=== PATIENT | male | born 1975 ===

== ENCOUNTER 2021-05-03 22:27 | Emergency (ER) | payer SELFPAY ==
[2021-05-03 23:48] LABS: CORONAVIRUS COVID-19 NAA NEGATIVE (NEGATIVE)
--- NOTE | 2021-05-04 00:16 | EDM.PDOC ---
ED HPI GENERAL MEDICAL PROBLEM - General Chief Complaint: Respiratory Problem Stated Complaint: can't breathe Time Seen by Provider: 05/03/21 23:55 Source of Information: Reports: Patient History Limitations: Reports: No Limitations - History of Present Illness INITIAL COMMENTS - FREE TEXT/NARRATIVE: This 45 yo male patient reports to the ED with increased shortness of breath. The patient reports over the past week he has noticed breathing difficulties when he lyes down. The patient reports he has not been able to catch his breath while in bed. The patient reports he has had "coughing fits" that have brought him to his knees. The patient reports he has not been in to see his primary care facility due to these symptoms. The patient denies any personal history of asthma or COPD, but does have a history of both in his family. Onset: Unknown/Unsure Duration: Week(s):, Constant, Getting Worse Location: Reports: Chest Quality: Reports: Other Severity: Moderate Improves with: Reports: None Worsens with: Reports: None Context: Reports: Other Associated Symptoms: Reports: Cough (Dry, non-productive), Shortness of Breath Mid-Sternal Chest Pain Score (Numeric/FACES): 5 - Related Data Allergies Allergy/AdvReac Type Severity Reaction Status Date / Time No Known Allergies Allergy Verified 05/03/21 23:19 Home Meds: Home Meds Omeprazole Magnesium [Prilosec Otc] 20 mg PO DAILY PRN 05/03/21 [History] Past Medical History Cardiovascular History: Reports: Hypertension - Past Surgical History HEENT Surgical History: Reports: Tonsillectomy Social & Family History - Tobacco Use Tobacco Use Status *Q: Current Every Day Tobacco User Years of Tobacco use: 25 Packs/Tins Daily: 0.5 - Recreational Drug Use Recreational Drug Use: No ED ROS GENERAL - Review of Systems Review Of Systems: Comprehensive ROS is negative, except as noted in HPI. ED EXAM, GENERAL - Physical Exam Exam: See Below Exam Limited By: No Limitations General Appearance: Alert, WD/WN, Moderate Distress, Obese Eye Exam: Bilateral Eye: EOMI, Normal Inspection, PERRL Ears: Normal External Exam, Normal Canal, Hearing Grossly Normal, Normal TMs Nose: Normal Inspection, Normal Mucosa, No Blood Throat/Mouth: Normal Inspection, Normal Lips, Normal Teeth, Normal Gums, Normal Oropharynx, Normal Voice, No Airway Compromise Head: Atraumatic, Normocephalic Neck: Normal Inspection, Supple, Non-Tender, Full Range of Motion Respiratory/Chest: No Respiratory Distress, No Accessory Muscle Use, Chest Non- Tender, Decreased Breath Sounds, Rhonchi Cardiovascular: Normal Peripheral Pulses, Regular Rate, Rhythm, No Edema, No Gallop, No JVD, No Murmur, No Rub GI/Abdominal: Normal Bowel Sounds, Soft, Non-Tender, No Organomegaly, No Distention, No Abnormal Bruit, No Mass (Male) Exam: Deferred Rectal (Males) Exam: Deferred Back Exam: Normal Inspection, Full Range of Motion, NT Extremities: Normal Inspection, Normal Range of Motion, Non-Tender, Normal Capillary Refill, No Pedal Edema Neurological: Alert, Oriented, CN II-XII Intact, Normal Cognition, Normal Gait, Normal Reflexes, No Motor/Sensory Deficits Psychiatric: Normal Affect, Normal Mood Skin Exam: Warm, Dry, Intact, Normal Color, No Rash Lymphatic: No Adenopathy #1 Interpretation EKG Date: 05/04/21 Time: 00:10 Rhythm: Other (Sinus Tach) Rate (Beats/Min): 109 [place]: Normal P-Wave: Present QRS: Normal ST-T: Normal QT: Normal Comparison: NA - No Prior EKG Course - Vital Signs Last Recorded V/S: Last Vital Signs Temp 97 F 05/03/21 23:11 Pulse 109 H 05/03/21 23:11 Resp 18 05/03/21 23:11 BP 152/132 H 05/03/21 23:31 Pulse Ox 98 05/03/21 23:11 - Orders/Labs/Meds Orders: Active Orders 24 hr Category Date Time Status CULTURE BLOOD [BC] Stat Lab 05/04/21 00:03 Ordered Labs: Laboratory Tests 05/03/21 05/04/21 05/04/21 Range/Units 22:58 00:20 00:20 WBC 15.4 H (5.0-10.0) 10^3/uL RBC 5.33 (4.6-6.2) 10^6/uL Hgb 15.2 (14.0-18.0) g/dL Hct 45.6 (40.0-54.0) % MCV 85.6 (80-100) fL MCH 28.5 (27.0-34.0) pg MCHC 33.3 (33.0-35.0) g/dL Plt Count 287 (150-450) 10^3/uL Neut % (Auto) 56.7 (42.2-75.2) % Lymph % (Auto) 31.2 (20.5-50.1) % Elliott % (Auto) 8.3 H (2-8) % Eos % (Auto) 3.2 H (1.0-3.0) % Baso % (Auto) 0.6 (0.0-1.0) % D-Dimer, Quantitative 357 (0-400) ng/mL Sodium (136-145) mmol/L Potassium (3.5-5.1) mmol/L Chloride (98-107) mmol/L Carbon Dioxide (21-32) mmol/L Anion Gap (7-13) mEq/L BUN (7-18) mg/dL Creatinine (0.70-1.30) mg/dL Est Cr Clr Drug Dosing mL/min Estimated GFR (MDRD) BUN/Creatinine Ratio (No establ ref range) Glucose (70-99) mg/dL Lactic Acid (0.4-2.0) mmol/L Calcium (8.5-10.1) mg/dL Total Bilirubin (0.2-1.0) mg/dL AST (15-37) U/L ALT (16-63) U/L Alkaline Phosphatase (46-116) U/L Troponin I High Sens (<=76) pg/mL B-Natriuretic Peptide (0-100) pg/ml Total Protein (6.4-8.2) g/dL Albumin (3.4-5.0) g/dL Globulin Albumin/Globulin Ratio Influenza Type A RNA Negative (NEGATIVE) Influenza Type B RNA Negative (NEGATIVE) SARS-CoV-2 RNA ([place]) Negative (NEGATIVE) 05/04/21 05/04/21 05/04/21 Range/Units 00:20 00:20 00:20 WBC (5.0-10.0) 10^3/uL RBC (4.6-6.2) 10^6/uL Hgb (14.0-18.0) g/dL Hct (40.0-54.0) % MCV (80-100) fL MCH (27.0-34.0) pg MCHC (33.0-35.0) g/dL Plt Count (150-450) 10^3/uL Neut % (Auto) (42.2-75.2) % Lymph % (Auto) (20.5-50.1) % Elliott % (Auto) (2-8) % Eos % (Auto) (1.0-3.0) % Baso % (Auto) (0.0-1.0) % D-Dimer, Quantitative (0-400) ng/mL Sodium 140 (136-145) mmol/L Potassium 4.2 (3.5-5.1) mmol/L Chloride 107 (98-107) mmol/L Carbon Dioxide 22 (21-32) mmol/L Anion Gap 15.2 H (7-13) mEq/L BUN 13 (7-18) mg/dL Creatinine 1.05 (0.70-1.30) mg/dL Est Cr Clr Drug Dosing 89.80 mL/min Estimated GFR (MDRD) > 60 BUN/Creatinine Ratio 12.4 (No establ ref range) Glucose 98 (70-99) mg/dL Lactic Acid 1.3 (0.4-2.0) mmol/L Calcium 8.9 (8.5-10.1) mg/dL Total Bilirubin 0.5 (0.2-1.0) mg/dL AST 28 (15-37) U/L ALT 54 (16-63) U/L Alkaline Phosphatase 83 (46-116) U/L Troponin I High Sens 39 (<=76) pg/mL B-Natriuretic Peptide 579 H (0-100) pg/ml Total Protein 7.7 (6.4-8.2) g/dL Albumin 4.0 (3.4-5.0) g/dL Globulin 3.7 Albumin/Globulin Ratio 1.1 Influenza Type A RNA (NEGATIVE) Influenza Type B RNA (NEGATIVE) SARS-CoV-2 RNA ([place]) (NEGATIVE) Meds: Medications Discontinued Medications Generic Name Dose Route Start Last Admin Trade Name Freq PRN Reason Stop Dose Admin Furosemide 40 mg 05/04/21 01:56 Furosemide 40 Mg/4 Ml Vial IVPUSH 05/04/21 01:57 ONETIME ONE - Radiology Interpretation Free Text/Narrative:: [facility] Final Radiology Report Call: [phone] assistance Online chat: [email or web address] Name: GRETTA RASMUSSEN Age: 45Years M Date: 05/04/2021 SSN: -- : [id number] Study: CR CHEST 2V Requesting Physician: Bryon Nick Images: 2 Addl Studies: Provided Clinical History: shortness of breath Contrast: Contrast Medium: Contrast Amount: Contrast Method: CONFIDENTIALITY STATEMENT This report is intended only for use by the referring physician, and only in accordance with law. If you received this in error, call [phone]. Page 1 of 1 PROCEDURE INFORMATION: Exam: XR Chest Exam date and time: 05/04/2021 1:04 AM Age: 45 years old Clinical indication: Cough and shortness of breath TECHNIQUE: Imaging protocol: XR of the chest. Views: 2 views. COMPARISON: No relevant prior studies available. FINDINGS: Lungs: Nonspecific mild peribronchial cuffing in both lungs. No focal airspace opacities. Pleural spaces: Unremarkable. No pleural effusion. No pneumothorax. Heart/Mediastinum: Mildly enlarged cardiac silhouette. Bones/joints: Unremarkable. IMPRESSION: 1. Mildly enlarged cardiac silhouette. 2. Mild peribronchial cuffing in both lungs which is nonspecific and may be seen with bronchitis, asthma, or reactive from smoking. No consolidation. Thank you for allowing us to participate in the care of your patient. Dictated and Authenticated by: Jcarlos Beth MD 05/04/2021 1:46 AM Central Time ([place] & [place]) - Re-Assessments/Exams Free Text/Narrative Re-Assessment/Exam: 05/04/21 02:00 The patient was advised of the examination, lab and x-ray results. The patient was encouraged to allow us to admit him to the hospital for further treatment and evaluation. 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 Departure - Departure Time of Disposition: 02:02 Disposition: Home, Self-Care 01 Condition: Fair Clinical Impression: Elevated brain natriuretic peptide (BNP) level Hypertension Qualifiers: Hypertension type: unspecified Qualified Code(s): I10 - Essential (primary) hypertension - Discharge Information *PRESCRIPTION DRUG MONITORING PROGRAM REVIEWED*: Not Applicable *COPY OF PRESCRIPTION DRUG MONITORING REPORT IN PATIENT PETER: Not Applicable Forms: ED Department Discharge Care Plan Goals: The patient was advised of the examination, lab, x-ray and EKG results during the visit. 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 The patient was given an IV dose of Lasix while in the ED. The patient was discharged with a script for Lanix (40 mg) #20 to take 1 by mouth 2 times per day. The patient was advised to follow-up with his primary care facility on Thursday. If the patient has any additional symptoms or concerns, the patient should either return to the emergency department or visit his primary care facility. Sepsis Event Note (ED) - Focused Exam Vital Signs: Vital Signs Temp Pulse Resp BP Pulse Ox 05/03/21 23:31 152/132 H 05/03/21 23:11 97 F 109 H 18 168/129 H 98 - My Orders Last 24 Hours: My Active Orders 05/04/21 00:03 CULTURE BLOOD [BC] Stat - Assessment/Plan Last 24 Hours: My Active Orders 05/04/21 00:03 CULTURE BLOOD [BC] Stat
[2021-05-04 00:45] LABS: ANION GAP 15.2 mEq/L (7-13); CHLORIDE,CL 107 mmol/L (98-107); SODIUM,NA 140 mmol/L (136-145)
--- NOTE | 2021-05-04 01:47 | CR ---
PROCEDURE INFORMATION: Exam: XR Chest Exam date and time: 05/04/2021 1:04 AM Age: 45 years old Clinical indication: Cough and shortness of breath TECHNIQUE: Imaging protocol: XR of the chest. Views: 2 views. COMPARISON: No relevant prior studies available. FINDINGS: Lungs: Nonspecific mild peribronchial cuffing in both lungs. No focal airspace opacities. Pleural spaces: Unremarkable. No pleural effusion. No pneumothorax. Heart/Mediastinum: Mildly enlarged cardiac silhouette. Bones/joints: Unremarkable. IMPRESSION: 1. Mildly enlarged cardiac silhouette. 2. Mild peribronchial cuffing in both lungs which is nonspecific and may be seen with bronchitis, asthma, or reactive from smoking. No consolidation.
[2021-05-04] MEDS ORDERED: Furosemide 40 MG/4 ML VIAL IVPUSH ONE (01:56)
== END 2021-05-04 02:19 | disposition home or self-care (01) ==
LOC: DL.ED 22:27
DX: I10 Essential (primary) hypertension (principal); R79.0 Abnormal level of blood mineral; Z79.899 Other long term (current) drug therapy; Z72.0 Tobacco use; Z20.822 Contact with and (suspected) exposure to COVID-19
CPT/HCPCS: 0240U; 36415; 71046; 80053; 83605; 83880; 84484; 85025; 85379; 87040; 93005; 96374; 99285; J1940

== ENCOUNTER 2021-05-21 16:03 | Inpatient (IN) | payer MEDICAID ==
[2021-05-21] MEDS ORDERED: Furosemide 40 MG/4 ML VIAL IVPUSH ONE (17:32)
[2021-05-21] MEDS ORDERED: Metoprolol Tartrate 5 MG/5 ML SDV IVPUSH ONE (17:58)
--- NOTE | 2021-05-21 17:58 | EDM.PDOC ---
<Bryon Nick - Last Filed: 05/21/21 19:45> ED HPI GENERAL MEDICAL PROBLEM - General Chief Complaint: Chest Pain Stated Complaint: CAN'T BREATHE, COUGHIHNG Time Seen by Provider: 05/21/21 17:56 - Related Data Allergies Allergy/AdvReac Type Severity Reaction Status Date / Time No Known Allergies Allergy Verified 05/21/21 18:09 Home Meds: Home Meds Furosemide [Lasix] 40 mg PO BID 05/21/21 [History] Course - Re-Assessments/Exams Free Text/Narrative Re-Assessment/Exam: 05/21/21 19:45 Patient care was taken over at shift change. Reviewing the examination, labs, treatments and history admission to [facility] is appropriate. Departure - Departure Time of Disposition: 19:46 Disposition: Admitted As Inpatient 64 Condition: Fair Clinical Impression: Elevated brain natriuretic peptide (BNP) level Chest pain Qualifiers: Chest pain type: unspecified Qualified Code(s): R07.9 - Chest pain, unspecified Hypertension Qualifiers: Hypertension type: unspecified Qualified Code(s): I10 - Essential (primary) hypertension - Discharge Information *PRESCRIPTION DRUG MONITORING PROGRAM REVIEWED*: Not Applicable *COPY OF PRESCRIPTION DRUG MONITORING REPORT IN PATIENT PETER: Not Applicable <QuintonAllyLuz Marina Maddy - Last Filed: 05/22/21 07:21> ED HPI GENERAL MEDICAL PROBLEM - General Source of Information: Reports: Patient, Old Records, RN, RN Notes Reviewed History Limitations: Reports: No Limitations - History of Present Illness INITIAL COMMENTS - FREE TEXT/NARRATIVE: Gretta is a 45 y/o male who presents to the ED via personal vehicle with complaints of shortness of breath and chest pain. The patient reports his symptoms began about seven days ago when his furosemide ran out. He was evaluated in this facility about three weeks ago and was started on furosemide 40mg BID with instructions to follow up with his primary care provider; the patient states he did not receive follow up as he attempted to reestablish with a PCP in [place]. Additionally, he notes headache, dry cough, chest pressure, palpitations, dyspepsia, and nausea. He denies dizziness, vision changes, sore throat, vomiting, dysuria, hematuria, or diarrhea. The patient reports he has been taking four tabs of Excedrin migraine daily for headache which he occasionally takes BID if the headache returns. He attests to smoking 1/2 pack of cigarettes daily; he denies alcohol or recreational drug use. 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 ED EXAM, GENERAL - Physical Exam Exam: See Below Exam Limited By: No Limitations General Appearance: Alert, Mild Distress (Headache), Obese Eye Exam: Bilateral Eye: EOMI, Normal Inspection, PERRL (3mm) Ears: Normal External Exam, Hearing Grossly Normal Nose: Normal Inspection Throat/Mouth: Normal Inspection, Normal Oropharynx, Normal Voice, No Airway Compromise Head: Atraumatic, Normocephalic Neck: Normal Inspection, Supple, Non-Tender, Full Range of Motion. No: Lymphadenopathy (L), Lymphadenopathy (R) Respiratory/Chest: No Respiratory Distress, Crackles (Faint to bilateral lower extremities), Rales (To left lower lobe), Accessory Muscle Use Cardiovascular: Normal Peripheral Pulses, Regular Rate, Rhythm, No Gallop, No JVD, No Murmur, No Rub, Tachycardia. No: No Edema Peripheral Pulses: 2+: Radial (L), Radial (R) GI/Abdominal: Normal Bowel Sounds, Soft, Non-Tender, No Distention, No Abnormal Bruit, No Mass, Pelvis Stable (Male) Exam: Deferred Rectal (Males) Exam: Deferred Back Exam: Normal Inspection, Full Range of Motion. No: CVA Tenderness (L), CVA Tenderness (R) Extremities: Normal Inspection, Normal Range of Motion, Normal Capillary Refill, Pedal Edema (+1, non-pitting) Neurological: Alert, Oriented, CN II-XII Intact, Normal Cognition, Normal Gait, No Motor/Sensory Deficits Psychiatric: Normal Affect, Normal Mood Skin Exam: Warm, Intact, Normal Color, No Rash, Diaphoretic. No: Cyanosis, Jaundice, Mottled, Pallor Lymphatic: No Adenopathy #1 Interpretation EKG Date: 05/21/21 Time: 17:13 Rhythm: Other (Sinus Tachycardia) Rate (Beats/Min): 109 [place]: Normal P-Wave: Present QRS: Normal ST-T: Normal QT: Prolonged (QTc 0.504) VA/PQ Interval: 0.161 Comparison: No Change EKG Interpretation Comments: ST; Prolonged QTc; No evidence of acute myocardial ischemia Course - Vital Signs Last Recorded V/S: Last Vital Signs Temp 98.4 F 05/22/21 04:00 Pulse 100 05/22/21 04:00 Resp 18 05/22/21 04:00 BP 140/97 H 05/22/21 04:00 Pulse Ox 97 05/22/21 04:00 - Orders/Labs/Meds Orders: Medication Orders Acetaminophen (Acetaminophen 325 Mg Tab) 650 mg PO Q4H PRN PRN Reason: Pain (Mild 1-3)/fever Last Admin: 05/21/21 20:48 Dose: 650 mg Documented by: ANTONIO Clonidine HCl (Clonidine 0.1 Mg Tab) 0.1 mg PO Q6H PRN PRN Reason: sbp>160 Docusate Sodium (Docusate Sodium 100 Mg Cap) 100 mg PO BID PRN PRN Reason: Constipation Furosemide (Furosemide 40 Mg/4 Ml Vial) 40 mg IVPUSH BIDDIURETIC [facility] Heparin Sodium (Porcine) (Heparin Sodium 5,000 Units/Ml Vial) 5,000 units SUBCUT Q8HR [facility] Last Admin: 05/22/21 06:05 Dose: Not Given Documented by: Admin: 05/21/21 22:07 Dose: Not Given Documented by: ANTONIO Lisinopril (Lisinopril 10 Mg Tab) 10 mg PO DAILY [facility] Last Admin: 05/21/21 20:48 Dose: 10 mg Documented by: ANTONIO Morphine Sulfate (Morphine 2 Mg/Ml Syringe) 2 mg IVPUSH Q2H PRN PRN Reason: Pain (severe 7-10) Ondansetron HCl (Ondansetron 4 Mg Tab.Dis) 4 mg PO Q4H PRN PRN Reason: nausea, able to take PO Oxycodone HCl (Oxycodone 5 Mg Tab) 5 mg PO Q4H PRN PRN Reason: Pain (moderate 4-6) Potassium Chloride (Potassium Chloride 10 Meq Tab.Er) 20 meq PO WITHBREAKFAST APURVA Sodium Chloride (Sodium Chloride 0.9% 10 Ml Syringe) 10 ml FLUSH 0900,2100 [facility] Last Admin: 05/21/21 22:30 Dose: Not Given Documented by: COLTON Sodium Chloride (Sodium Chloride 0.9% 10 Ml Syringe) 10 ml FLUSH ASDIRECTED PRN PRN Reason: Keep Vein Open Zolpidem Tartrate (Zolpidem 5 Mg Tab) 5 mg PO BEDTIME PRN PRN Reason: Sleep Last Admin: 05/21/21 20:48 Dose: 5 mg Documented by: ANTONIO Labs: Laboratory Tests 05/21/21 05/21/21 05/21/21 Range/Units 16:25 17:39 17:39 WBC 12.4 H (5.0-10.0) 10^3/uL RBC 4.91 (4.6-6.2) 10^6/uL Hgb 14.0 (14.0-18.0) g/dL Hct 42.0 (40.0-54.0) % MCV 85.5 (80-100) fL MCH 28.5 (27.0-34.0) pg MCHC 33.3 (33.0-35.0) g/dL Plt Count 263 (150-450) 10^3/uL Neut % (Auto) 68.1 (42.2-75.2) % Lymph % (Auto) 24.0 (20.5-50.1) % [place] % (Auto) 5.8 (2-8) % Eos % (Auto) 1.7 (1.0-3.0) % Baso % (Auto) 0.4 (0.0-1.0) % Sodium 141 (136-145) mmol/L Potassium 4.0 (3.5-5.1) mmol/L Chloride 106 (98-107) mmol/L Carbon Dioxide 23 (21-32) mmol/L Anion Gap 16.0 H (7-13) mEq/L BUN 14 (7-18) mg/dL Creatinine 1.00 (0.70-1.30) mg/dL Est Cr Clr Drug Dosing 96.07 mL/min Estimated GFR (MDRD) > 60 BUN/Creatinine Ratio 14.0 (No establ ref range) Glucose 106 H (70-99) mg/dL Lactic Acid (0.4-2.0) mmol/L Calcium 8.8 (8.5-10.1) mg/dL Total Bilirubin 0.5 (0.2-1.0) mg/dL AST 30 (15-37) U/L ALT 55 (16-63) U/L Alkaline Phosphatase 78 (46-116) U/L Troponin I High Sens 27 (<=76) pg/mL C-Reactive Protein 2.3 H (0.0-0.9) mg/dL B-Natriuretic Peptide 501 H (0-100) pg/ml Total Protein 7.2 (6.4-8.2) g/dL Albumin 3.7 (3.4-5.0) g/dL Globulin 3.5 Albumin/Globulin Ratio 1.1 Urine Color (YELLOW) Urine Appearance (CLEAR) Urine pH (5.0-9.0) Ur Specific [place] (1.005-1.030) Urine Protein (NEGATIVE) Urine Glucose (UA) (NEGATIVE) Urine Ketones (NEGATIVE) Urine Occult Blood (NEGATIVE) Urine Nitrite (NEGATIVE) Urine Bilirubin (NEGATIVE) Urine Urobilinogen (0.2-1.0) mg/dL Ur Leukocyte Esterase (NEGATIVE) Urine RBC (0-5) /HPF Urine WBC (0-5/HPF) /HPF Ur Epithelial Cells (NOT SEEN) /HPF Amorphous Sediment (NOT SEEN) /HPF Influenza Type A RNA Negative (NEGATIVE) Influenza Type B RNA Negative (NEGATIVE) SARS-CoV-2 RNA ([place]) Negative (NEGATIVE) 05/21/21 05/21/21 Range/Units 17:39 18:25 WBC (5.0-10.0) 10^3/uL RBC (4.6-6.2) 10^6/uL Hgb (14.0-18.0) g/dL Hct (40.0-54.0) % MCV (80-100) fL MCH (27.0-34.0) pg MCHC (33.0-35.0) g/dL Plt Count (150-450) 10^3/uL Neut % (Auto) (42.2-75.2) % Lymph % (Auto) (20.5-50.1) % [place] % (Auto) (2-8) % Eos % (Auto) (1.0-3.0) % Baso % (Auto) (0.0-1.0) % Sodium (136-145) mmol/L Potassium (3.5-5.1) mmol/L Chloride (98-107) mmol/L Carbon Dioxide (21-32) mmol/L Anion Gap (7-13) mEq/L BUN (7-18) mg/dL Creatinine (0.70-1.30) mg/dL Est Cr Clr Drug Dosing mL/min Estimated GFR (MDRD) BUN/Creatinine Ratio (No establ ref range) Glucose (70-99) mg/dL Lactic Acid 1.2 (0.4-2.0) mmol/L Calcium (8.5-10.1) mg/dL Total Bilirubin (0.2-1.0) mg/dL AST (15-37) U/L ALT (16-63) U/L Alkaline Phosphatase (46-116) U/L Troponin I High Sens (<=76) pg/mL C-Reactive Protein (0.0-0.9) mg/dL B-Natriuretic Peptide (0-100) pg/ml Total Protein (6.4-8.2) g/dL Albumin (3.4-5.0) g/dL Globulin Albumin/Globulin Ratio Urine Color Yellow (YELLOW) Urine Appearance Clear (CLEAR) Urine pH 6.0 (5.0-9.0) Ur Specific [place] >= 1.030 (1.005-1.030) Urine Protein Trace H (NEGATIVE) Urine Glucose (UA) Negative (NEGATIVE) Urine Ketones Negative (NEGATIVE) Urine Occult Blood Trace-intact H (NEGATIVE) Urine Nitrite Negative (NEGATIVE) Urine Bilirubin Negative (NEGATIVE) Urine Urobilinogen 0.2 (0.2-1.0) mg/dL Ur Leukocyte Esterase Negative (NEGATIVE) Urine RBC 0-5 (0-5) /HPF Urine WBC 0-5 (0-5/HPF) /HPF Ur Epithelial Cells Rare (NOT SEEN) /HPF Amorphous Sediment Rare (NOT SEEN) /HPF Influenza Type A RNA (NEGATIVE) Influenza Type B RNA (NEGATIVE) SARS-CoV-2 RNA ([place]) (NEGATIVE) Meds: Medications Generic Name Dose Route Start Last Admin Trade Name Freq PRN Reason Stop Dose Admin Acetaminophen 650 mg 05/21/21 20:26 05/21/21 20:48 Acetaminophen 325 Mg Tab PO 650 mg Q4H PRN Administration Pain (Mild 1-3)/fever Clonidine HCl 0.1 mg 05/21/21 20:25 Clonidine 0.1 Mg Tab PO Q6H PRN sbp>160 Docusate Sodium 100 mg 05/21/21 20:26 Docusate Sodium 100 Mg Cap PO BID PRN Constipation Furosemide 40 mg 05/22/21 08:00 Furosemide 40 Mg/4 Ml Vial IVPUSH BIDDIURETIC [facility] Heparin Sodium (Porcine) 5,000 units 05/21/21 22:00 05/22/21 06:05 Heparin Sodium 5,000 Units/Ml Vial SUBCUT Not Given Q8HR [facility] Lisinopril 10 mg 05/21/21 20:30 05/21/21 20:48 Lisinopril 10 Mg Tab PO 10 mg DAILY [facility] Administration Morphine Sulfate 2 mg 05/21/21 20:26 Morphine 2 Mg/Ml Syringe IVPUSH Q2H PRN Pain (severe 7-10) Ondansetron HCl 4 mg 05/21/21 20:26 Ondansetron 4 Mg Tab.Dis PO Q4H PRN nausea, able to take PO Oxycodone HCl 5 mg 05/21/21 20:26 Oxycodone 5 Mg Tab PO Q4H PRN Pain (moderate 4-6) Potassium Chloride 20 meq 05/22/21 08:00 Potassium Chloride 10 Meq Tab.Er PO WITHBREAKFAST [facility] Sodium Chloride 10 ml 05/21/21 21:00 05/21/21 22:30 Sodium Chloride 0.9% 10 Ml Syringe FLUSH Not Given 0900,2100 [facility] Sodium Chloride 10 ml 05/21/21 20:26 Sodium Chloride 0.9% 10 Ml Syringe FLUSH ASDIRECTED PRN Keep Vein Open Zolpidem Tartrate 5 mg 05/21/21 20:26 05/21/21 20:48 Zolpidem 5 Mg Tab PO 5 mg BEDTIME PRN Administration Sleep Discontinued Medications Generic Name Dose Route Start Last Admin Trade Name Freq PRN Reason Stop Dose Admin Furosemide 40 mg 05/21/21 17:32 05/21/21 17:51 Furosemide 40 Mg/4 Ml Vial IVPUSH 05/21/21 17:33 40 mg ONETIME ONE Administration Metoprolol Tartrate 5 mg 05/21/21 17:58 05/21/21 18:25 Metoprolol Tartrate 5 Mg/5 Ml Sdv IVPUSH 05/21/21 17:59 5 mg ONETIME ONE Administration - Radiology Interpretation Free Text/Narrative:: [facility] [place] [facility] Final Radiology Report Call: [phone] assistance Online chat: [email or web address] Name: GRETTA RASMUSSEN Age: 45Years M Date: 05/21/2021 SSN: -- : [id number] Study: CR CHEST 1V FRONTAL Requesting Physician: Luz Marina Alcantara Images: 1 Addl Studies: Provided Clinical History: SOB; Faint crackles to bases Contrast: Contrast Medium: Contrast Amount: Contrast Method: CONFIDENTIALITY STATEMENT This report is intended only for use by the referring physician, and only in accordance with law. If you received this in error, call [phone]. Page 1 of 1 PROCEDURE INFORMATION: Exam: XR Chest Exam date and time: 05/21/2021 6:32 PM Age: 45 years old Clinical indication: Other: SOB; Faint crackles to bases TECHNIQUE: Imaging protocol: XR of the chest. Views: 1 view. COMPARISON: CR Chest 2V 05/04/2021 1:04 AM FINDINGS: Lungs: See "Heart/Mediastinum" finding. No consolidation. Pleural spaces: Unremarkable. No pleural effusion. No pneumothorax. Heart/Mediastinum: Cardiomegaly with central pulmonary vascular congestion. Bones/joints: Unremarkable. IMPRESSION: Possible early fluid overload. Thank you for allowing us to participate in the care of your patient. Dictated and Authenticated by: Denny Alfredo MD 05/21/2021 7:32 PM Central Time ([place] & [place]) - Re-Assessments/Exams Free Text/Narrative Re-Assessment/Exam: 05/21/21 Furosemide 40mg IVP and Metoprolol 5mg IVP administered. Care of patient transferred to Jose De Jesus Nick PA-C at 1900. Sepsis Event Note (ED) - Evaluation Sepsis Screening Result: No Definite Risk
[2021-05-21 18:12] LABS: CORONAVIRUS COVID-19 NAA NEGATIVE (NEGATIVE)
[2021-05-21 18:21] LABS: CHLORIDE,CL 106 mmol/L (98-107); SODIUM,NA 141 mmol/L (136-145)
--- NOTE | 2021-05-21 19:32 | CR ---
PROCEDURE INFORMATION: Exam: XR Chest Exam date and time: 05/21/2021 6:32 PM Age: 45 years old Clinical indication: Other: SOB; Faint crackles to bases TECHNIQUE: Imaging protocol: XR of the chest. Views: 1 view. COMPARISON: CR Chest 2V 05/04/2021 1:04 AM FINDINGS: Lungs: See "Heart/Mediastinum" finding. No consolidation. Pleural spaces: Unremarkable. No pleural effusion. No pneumothorax. Heart/Mediastinum: Cardiomegaly with central pulmonary vascular congestion. Bones/joints: Unremarkable. IMPRESSION: Possible early fluid overload.
[2021-05-21] MEDS ORDERED: cloNIDine 0.1 MG Tab PO PRN (20:25)
[2021-05-21] MEDS ORDERED: Sodium Chloride 0.9% 10 ML Syringe FLUSH PRN (20:26)
[2021-05-21] MEDS ORDERED: Ondansetron 4 MG Tab.DIS PO PRN (20:26)
[2021-05-21] MEDS ORDERED: oxyCODONE 5 MG Tab PO PRN (20:26)
[2021-05-21] MEDS ORDERED: Morphine 2 MG/ML SYRINGE IVPUSH PRN (20:26)
[2021-05-21] MEDS ORDERED: Docusate Sodium 100 MG Cap PO PRN (20:26)
--- NOTE | 2021-05-21 20:34 | PCM.HP ---
H&P History of Present Illness - General Date of Service: 05/21/21 Admit Problem/Dx: Admission Diagnosis/Problem Admission Diagnosis/Problem Chest pain Source of Information: Patient - History of Present Illness Initial Comments - Free Text/Narative: presented with sob noted to have edema, and chf 3 weeks ago during er visit started on lasix ran out of that 7 days ago increasing sob, mod to severe, worse with laying down associated with leg swelling chest pressure - constant, days no feve but has cough, non productive Chest Pain Score (Numeric/FACES): 5 - Related Data Allergies/Adverse Reactions: Allergies Allergy/AdvReac Type Severity Reaction Status Date / Time No Known Allergies Allergy Verified 05/21/21 18:09 Home Medications: Home Meds Furosemide [Lasix] 40 mg PO BID 05/21/21 [History] Past Medical History Cardiovascular History: Reports: Heart Failure, Hypertension - Past Surgical History HEENT Surgical History: Reports: Tonsillectomy Social & Family History - Tobacco Use Tobacco Use Status *Q: Current Every Day Tobacco User Years of Tobacco use: 32 Packs/Tins Daily: 0.5 - Caffeine Use Caffeine Use: Reports: Coffee, Soda - Recreational Drug Use Recreational Drug Use: No H&P Review of Systems - Review of Systems: Review Of Systems: See Below General: Reports: Malaise, Weakness. Denies: Fever Pulmonary: Reports: Shortness of Breath, Cough. Denies: Sputum Cardiovascular: Reports: Chest Pain (pressure) Gastrointestinal: Reports: Other (feeling distended). Denies: Abdominal Pain Genitourinary: Denies: Dysuria Musculoskeletal: Denies: Neck Pain Psychiatric: Denies: Confusion Neurological: Denies: Dizziness Exam - Exam Exam: See Below - Vital Signs Vital Signs: Last Vital Signs Temp 98.4 F 05/21/21 18:28 Pulse 105 H 05/21/21 18:28 Resp 28 H 05/21/21 18:28 BP 181/128 H 05/21/21 18:28 Pulse Ox 96 05/21/21 18:28 Weight: 275 lb - Exam General: Alert, Oriented Neck: Supple Lungs: Normal Respiratory Effort, Crackles Cardiovascular: Regular Rate, Regular Rhythm GI/Abdominal Exam: Normal Bowel Sounds, Soft, Non-Tender Extremities: Pedal Edema (2-3 + pitting edema) - Patient Data Lab Results Last 24 hrs: Laboratory Results - last 24 hr 12/14/21 12/14/21 12/14/21 Range/Units 16:25 17:39 17:39 WBC 12.4 H (5.0-10.0) 10^3/uL RBC 4.91 (4.6-6.2) 10^6/uL Hgb 14.0 (14.0-18.0) g/dL Hct 42.0 (40.0-54.0) % MCV 85.5 (80-100) fL MCH 28.5 (27.0-34.0) pg MCHC 33.3 (33.0-35.0) g/dL Plt Count 263 (150-450) 10^3/uL Neut % (Auto) 68.1 (42.2-75.2) % Lymph % (Auto) 24.0 (20.5-50.1) % Hyde % (Auto) 5.8 (2-8) % Eos % (Auto) 1.7 (1.0-3.0) % Baso % (Auto) 0.4 (0.0-1.0) % Sodium 141 (136-145) mmol/L Potassium 4.0 (3.5-5.1) mmol/L Chloride 106 (98-107) mmol/L Carbon Dioxide 23 (21-32) mmol/L Anion Gap 16.0 H (7-13) mEq/L BUN 14 (7-18) mg/dL Creatinine 1.00 (0.70-1.30) mg/dL Est Cr Clr Drug Dosing 96.07 mL/min Estimated GFR (MDRD) > 60 BUN/Creatinine Ratio 14.0 (No establ ref range) Glucose 106 H (70-99) mg/dL Lactic Acid (0.4-2.0) mmol/L Calcium 8.8 (8.5-10.1) mg/dL Total Bilirubin 0.5 (0.2-1.0) mg/dL AST 30 (15-37) U/L ALT 55 (16-63) U/L Alkaline Phosphatase 78 (46-116) U/L Troponin I High Sens 27 (<=76) pg/mL C-Reactive Protein 2.3 H (0.0-0.9) mg/dL B-Natriuretic Peptide 501 H (0-100) pg/ml Total Protein 7.2 (6.4-8.2) g/dL Albumin 3.7 (3.4-5.0) g/dL Globulin 3.5 Albumin/Globulin Ratio 1.1 Urine Color (YELLOW) Urine Appearance (CLEAR) Urine pH (5.0-9.0) Ur Specific Presto (1.005-1.030) Urine Protein (NEGATIVE) Urine Glucose (UA) (NEGATIVE) Urine Ketones (NEGATIVE) Urine Occult Blood (NEGATIVE) Urine Nitrite (NEGATIVE) Urine Bilirubin (NEGATIVE) Urine Urobilinogen (0.2-1.0) mg/dL Ur Leukocyte Esterase (NEGATIVE) Urine RBC (0-5) /HPF Urine WBC (0-5/HPF) /HPF Ur Epithelial Cells (NOT SEEN) /HPF Amorphous Sediment (NOT SEEN) /HPF Influenza Type A RNA Negative (NEGATIVE) Influenza Type B RNA Negative (NEGATIVE) SARS-CoV-2 RNA ([place]) Negative (NEGATIVE) 05/21/21 05/21/21 Range/Units 17:39 18:25 WBC (5.0-10.0) 10^3/uL RBC (4.6-6.2) 10^6/uL Hgb (14.0-18.0) g/dL Hct (40.0-54.0) % MCV (80-100) fL MCH (27.0-34.0) pg MCHC (33.0-35.0) g/dL Plt Count (150-450) 10^3/uL Neut % (Auto) (42.2-75.2) % Lymph % (Auto) (20.5-50.1) % Hyde % (Auto) (2-8) % Eos % (Auto) (1.0-3.0) % Baso % (Auto) (0.0-1.0) % Sodium (136-145) mmol/L Potassium (3.5-5.1) mmol/L Chloride (98-107) mmol/L Carbon Dioxide (21-32) mmol/L Anion Gap (7-13) mEq/L BUN (7-18) mg/dL Creatinine (0.70-1.30) mg/dL Est Cr Clr Drug Dosing mL/min Estimated GFR (MDRD) BUN/Creatinine Ratio (No establ ref range) Glucose (70-99) mg/dL Lactic Acid 1.2 (0.4-2.0) mmol/L Calcium (8.5-10.1) mg/dL Total Bilirubin (0.2-1.0) mg/dL AST (15-37) U/L ALT (16-63) U/L Alkaline Phosphatase (46-116) U/L Troponin I High Sens (<=76) pg/mL C-Reactive Protein (0.0-0.9) mg/dL B-Natriuretic Peptide (0-100) pg/ml Total Protein (6.4-8.2) g/dL Albumin (3.4-5.0) g/dL Globulin Albumin/Globulin Ratio Urine Color Yellow (YELLOW) Urine Appearance Clear (CLEAR) Urine pH 6.0 (5.0-9.0) Ur Specific Presto >= 1.030 (1.005-1.030) Urine Protein Trace H (NEGATIVE) Urine Glucose (UA) Negative (NEGATIVE) Urine Ketones Negative (NEGATIVE) Urine Occult Blood Trace-intact H (NEGATIVE) Urine Nitrite Negative (NEGATIVE) Urine Bilirubin Negative (NEGATIVE) Urine Urobilinogen 0.2 (0.2-1.0) mg/dL Ur Leukocyte Esterase Negative (NEGATIVE) Urine RBC 0-5 (0-5) /HPF Urine WBC 0-5 (0-5/HPF) /HPF Ur Epithelial Cells Rare (NOT SEEN) /HPF Amorphous Sediment Rare (NOT SEEN) /HPF Influenza Type A RNA (NEGATIVE) Influenza Type B RNA (NEGATIVE) SARS-CoV-2 RNA ([place]) (NEGATIVE) Result Diagrams: 05/21/21 17:39 05/21/21 17:39 - Problem List (1) CHF (congestive heart failure) SNOMED Code(s): 78317533 ICD Code: I50.9 - HEART FAILURE, UNSPECIFIED Status: Acute Current Visit: Yes (2) Leukocytosis SNOMED Code(s): 126546692, 609408571 ICD Code: D72.829 - ELEVATED WHITE BLOOD CELL COUNT, UNSPECIFIED Status: Acute Current Visit: Yes (3) Chest pain SNOMED Code(s): 56895611 ICD Code: R07.9 - CHEST PAIN, UNSPECIFIED Status: Acute Current Visit: No Qualifiers: Chest pain type: unspecified Qualified Code(s): R07.9 - Chest pain, unspecified (4) Hypertension SNOMED Code(s): 04929966 ICD Code: I10 - ESSENTIAL (PRIMARY) HYPERTENSION Status: Acute Current Visit: No Qualifiers: Hypertension type: unspecified Qualified Code(s): I10 - Essential (primary) hypertension Problem List Initiated/Reviewed/Updated: Yes Orders Last 24hrs: Active Orders 24 hr Category Date Time Status Admission Diagnosis [ADT] Urgent ADT 05/21/21 19:43 Ordered Admission Status [Patient Status] [ADT] Routine ADT 05/21/21 19:43 Active Antiembolic Devices [RC] PER UNIT ROUTINE Care 05/21/21 20:26 Ordered Oxygen Therapy [RC] PRN Care 05/21/21 20:26 Ordered Peripheral IV Care [RC] . DIRECTED Care 05/21/21 20:27 Ordered Telemetry Monitoring [Cardiac Monitoring] [RC] . Care 05/21/21 20:24 Ordered DIRECTED Up With Assistance [RC] ASDIRECTED Care 05/21/21 20:26 Ordered VTE/DVT Education [RC] PER UNIT ROUTINE Care 05/21/21 20:26 Ordered Vital Signs [RC] Q4H Care 05/21/21 20:26 Ordered Regular Diet [DIET] Diet 05/21/21 Breakfast Ordered B-TYPE NATRIURETIC PEPTIDE,BNP [CHEM] AM Lab 05/23/21 05:11 Ordered BASIC METABOLIC PANEL,BMP [CHEM] AM Lab 05/22/21 05:15 Ordered CBC WITH AUTO DIFF [HEME] AM Lab 05/22/21 05:15 Ordered CULTURE BLOOD [BC] Stat Lab 05/21/21 20:20 Ordered CULTURE BLOOD [BC] Stat Lab 05/21/21 20:20 Ordered TROPONIN I HIGH SENSITIVITY [CHEM] Routine Lab 05/22/21 05:50 Ordered Acetaminophen [TylenoL] Med 05/21/21 20:26 Ordered 650 mg PO Q4H PRN Docusate Sodium [Colace] Med 05/21/21 20:26 Ordered 100 mg PO BID PRN Furosemide [Lasix] Med 05/22/21 08:00 Ordered 40 mg IVPUSH BIDDIURETIC Heparin Sodium Med 05/21/21 22:00 Ordered 5,000 units SUBCUT Q8HR Morphine Med 05/21/21 20:26 Ordered 2 mg IVPUSH Q2H PRN Ondansetron [Zofran ODT] Med 05/21/21 20:26 Ordered 4 mg PO Q4H PRN Potassium Chloride [Klor-Con 10] Med 05/22/21 08:00 Ordered 20 meq PO WITHBREAKFAST Sodium Chloride 0.9% [Saline Flush] Med 05/21/21 21:00 Ordered 10 ml FLUSH 0900,2100 Sodium Chloride 0.9% [Saline Flush] Med 05/21/21 20:26 Ordered 10 ml FLUSH ASDIRECTED PRN Zolpidem [Ambien] Med 05/21/21 20:26 Ordered 5 mg PO BEDTIME PRN cloNIDine [Catapres] Med 05/21/21 20:25 Ordered 0.1 mg PO Q6H PRN lisinopriL [Prinivil] Med 05/21/21 20:30 Ordered 10 mg PO DAILY oxyCODONE Med 05/21/21 20:26 Ordered 5 mg PO Q4H PRN Antiembolic Hose [OM.PC] Per Unit Routine Oth 05/21/21 20:26 Ordered Blood Culture x2 Reflex Set [OM.PC] Stat Oth 05/21/21 20:20 Ordered Peripheral IV Insertion Adult [OM.PC] Routine Oth 05/21/21 20:26 Ordered Saline Lock Insert [OM.PC] Routine Oth 05/21/21 20:26 Ordered Resuscitation Status Routine Resus Stat 05/21/21 20:26 Ordered Medication Orders Acetaminophen (Acetaminophen 325 Mg Tab) 650 mg PO Q4H PRN PRN Reason: Pain (Mild 1-3)/fever Clonidine HCl (Clonidine 0.1 Mg Tab) 0.1 mg PO Q6H PRN PRN Reason: sbp>160 Docusate Sodium (Docusate Sodium 100 Mg Cap) 100 mg PO BID PRN PRN Reason: Constipation Furosemide (Furosemide 40 Mg/4 Ml Vial) 40 mg IVPUSH BIDDIURETIC APURVA Heparin Sodium (Porcine) (Heparin Sodium 5,000 Units/Ml Vial) 5,000 units SUBC UT Q8HR APURVA Lisinopril (Lisinopril 10 Mg Tab) 10 mg PO DAILY APURVA Morphine Sulfate (Morphine 2 Mg/Ml Syringe) 2 mg IVPUSH Q2H PRN PRN Reason: Pain (severe 7-10) Ondansetron HCl (Ondansetron 4 Mg Tab.Dis) 4 mg PO Q4H PRN PRN Reason: nausea, able to take PO Oxycodone HCl (Oxycodone 5 Mg Tab) 5 mg PO Q4H PRN PRN Reason: Pain (moderate 4-6) Potassium Chloride (Potassium Chloride 10 Meq Tab.Er) 20 meq PO WITHBREAKFAST APURVA Sodium Chloride (Sodium Chloride 0.9% 10 Ml Syringe) 10 ml FLUSH 0900,2100 APURVA Sodium Chloride (Sodium Chloride 0.9% 10 Ml Syringe) 10 ml FLUSH ASDIRECTED PRN PRN Reason: Keep Vein Open Zolpidem Tartrate (Zolpidem 5 Mg Tab) 5 mg PO BEDTIME PRN PRN Reason: Sleep Assessment/Plan Comment:: 45 yo presented with increasing sob acute chf with cardiomegaly on cxr will need echo to characterize chf start lasix, K supplement follow elytes and renal function htn start lasix start lisinopril consider to add BBlocker when diuresed some check lipid panel check troponin telemetry for sob, chest pain dvt prophylaxis with sq heparin
[2021-05-21] MEDS: Lisinopril 10 MG Tab PO SCH (20:48)
[2021-05-21] MEDS: Zolpidem 5 MG Tab PO PRN (20:48)
[2021-05-21] MEDS: Acetaminophen 325 MG Tab PO PRN (20:48)
[2021-05-21] MEDS: Heparin Sodium 5,000 Units/ML Vial SUBCUT SCH (22:07)
[2021-05-21] MEDS: Sodium Chloride 0.9% 10 ML Syringe FLUSH SCH (22:30)
[2021-05-22] MEDS: Heparin Sodium 5,000 Units/ML Vial SUBCUT SCH ×3 (06:05→21:36)
[2021-05-22 06:47] LABS: ANION GAP 17.9 mEq/L (7-13); CHLORIDE,CL 107 mmol/L (98-107); SODIUM,NA 145 mmol/L (136-145)
[2021-05-22] MEDS: Furosemide 40 MG/4 ML VIAL IVPUSH SCH ×2 (08:00→14:11)
[2021-05-22] MEDS: Lisinopril 10 MG Tab PO SCH (08:03)
[2021-05-22] MEDS: Potassium Chloride 10 MEQ Tab.ER PO SCH (08:03)
[2021-05-22] MEDS: Sodium Chloride 0.9% 10 ML Syringe FLUSH SCH ×2 (08:03→21:37)
--- NOTE | 2021-05-22 11:17 | PCM.PN ---
- General Info Date of Service: 05/22/21 Admission Dx/Problem (Free Text): Admission Diagnosis/Problem Admission Diagnosis/Problem Chest pain Functional Status: Reports: Pain Controlled - Review of Systems General: Reports: Malaise. Denies: Fever, Weakness Pulmonary: Reports: Shortness of Breath. Denies: Cough, Sputum, Hemoptysis Cardiovascular: Reports: Edema. Denies: Chest Pain (resolved) Gastrointestinal: Denies: Abdominal Pain Genitourinary: Denies: Dysuria Neurological: Denies: Confusion - Patient Data Vitals - Most Recent: Last Vital Signs Temp 97.1 F 05/22/21 07:42 Pulse 50 L 05/22/21 07:42 Resp 20 05/22/21 07:42 BP 142/98 H 05/22/21 08:03 Pulse Ox 95 05/22/21 07:42 Weight - Most Recent: 265 lb 3.2 oz I&O - Last 24 Hours: Intake & Output 05/21/21 05/22/21 05/22/21 22:59 06:59 14:59 Intake Total 600 Output Total 1750 1500 Balance -1750 -1500 600 Lab Results Last 24 Hours: Laboratory Results - last 24 hr 05/21/21 05/21/21 05/21/21 Range/Units 16:25 17:39 17:39 WBC 12.4 H (5.0-10.0) 10^3/uL RBC 4.91 (4.6-6.2) 10^6/uL Hgb 14.0 (14.0-18.0) g/dL Hct 42.0 (40.0-54.0) % MCV 85.5 (80-100) fL MCH 28.5 (27.0-34.0) pg MCHC 33.3 (33.0-35.0) g/dL Plt Count 263 (150-450) 10^3/uL Neut % (Auto) 68.1 (42.2-75.2) % Lymph % (Auto) 24.0 (20.5-50.1) % [place] % (Auto) 5.8 (2-8) % Eos % (Auto) 1.7 (1.0-3.0) % Baso % (Auto) 0.4 (0.0-1.0) % Sodium 141 (136-145) mmol/L Potassium 4.0 (3.5-5.1) mmol/L Chloride 106 (98-107) mmol/L Carbon Dioxide 23 (21-32) mmol/L Anion Gap 16.0 H (7-13) mEq/L BUN 14 (7-18) mg/dL Creatinine 1.00 (0.70-1.30) mg/dL Est Cr Clr Drug Dosing 96.07 mL/min Estimated GFR (MDRD) > 60 BUN/Creatinine Ratio 14.0 (No establ ref range) Glucose 106 H (70-99) mg/dL Lactic Acid (0.4-2.0) mmol/L Calcium 8.8 (8.5-10.1) mg/dL Total Bilirubin 0.5 (0.2-1.0) mg/dL AST 30 (15-37) U/L ALT 55 (16-63) U/L Alkaline Phosphatase 78 (46-116) U/L Troponin I High Sens 27 (<=76) pg/mL C-Reactive Protein 2.3 H (0.0-0.9) mg/dL B-Natriuretic Peptide 501 H (0-100) pg/ml Total Protein 7.2 (6.4-8.2) g/dL Albumin 3.7 (3.4-5.0) g/dL Globulin 3.5 Albumin/Globulin Ratio 1.1 Urine Color (YELLOW) Urine Appearance (CLEAR) Urine pH (5.0-9.0) Ur Specific [place] (1.005-1.030) Urine Protein (NEGATIVE) Urine Glucose (UA) (NEGATIVE) Urine Ketones (NEGATIVE) Urine Occult Blood (NEGATIVE) Urine Nitrite (NEGATIVE) Urine Bilirubin (NEGATIVE) Urine Urobilinogen (0.2-1.0) mg/dL Ur Leukocyte Esterase (NEGATIVE) Urine RBC (0-5) /HPF Urine WBC (0-5/HPF) /HPF Ur Epithelial Cells (NOT SEEN) /HPF Amorphous Sediment (NOT SEEN) /HPF Influenza Type A RNA Negative (NEGATIVE) Influenza Type B RNA Negative (NEGATIVE) SARS-CoV-2 RNA ([place]) Negative (NEGATIVE) 05/21/21 05/21/21 05/22/21 Range/Units 17:39 18:25 05:43 WBC 12.4 H (5.0-10.0) 10^3/uL RBC 4.73 (4.6-6.2) 10^6/uL Hgb 13.3 L (14.0-18.0) g/dL Hct 41.1 (40.0-54.0) % MCV 86.9 (80-100) fL MCH 28.1 (27.0-34.0) pg MCHC 32.4 L (33.0-35.0) g/dL Plt Count 256 (150-450) 10^3/uL Neut % (Auto) 55.0 (42.2-75.2) % Lymph % (Auto) 34.2 (20.5-50.1) % [place] % (Auto) 7.4 (2-8) % Eos % (Auto) 3.1 H (1.0-3.0) % Baso % (Auto) 0.3 (0.0-1.0) % Sodium (136-145) mmol/L Potassium (3.5-5.1) mmol/L Chloride (98-107) mmol/L Carbon Dioxide (21-32) mmol/L Anion Gap (7-13) mEq/L BUN (7-18) mg/dL Creatinine (0.70-1.30) mg/dL Est Cr Clr Drug Dosing mL/min Estimated GFR (MDRD) BUN/Creatinine Ratio (No establ ref range) Glucose (70-99) mg/dL Lactic Acid 1.2 (0.4-2.0) mmol/L Calcium (8.5-10.1) mg/dL Total Bilirubin (0.2-1.0) mg/dL AST (15-37) U/L ALT (16-63) U/L Alkaline Phosphatase (46-116) U/L Troponin I High Sens (<=76) pg/mL C-Reactive Protein (0.0-0.9) mg/dL B-Natriuretic Peptide (0-100) pg/ml Total Protein (6.4-8.2) g/dL Albumin (3.4-5.0) g/dL Globulin Albumin/Globulin Ratio Urine Color Yellow (YELLOW) Urine Appearance Clear (CLEAR) Urine pH 6.0 (5.0-9.0) Ur Specific [place] >= 1.030 (1.005-1.030) Urine Protein Trace H (NEGATIVE) Urine Glucose (UA) Negative (NEGATIVE) Urine Ketones Negative (NEGATIVE) Urine Occult Blood Trace-intact H (NEGATIVE) Urine Nitrite Negative (NEGATIVE) Urine Bilirubin Negative (NEGATIVE) Urine Urobilinogen 0.2 (0.2-1.0) mg/dL Ur Leukocyte Esterase Negative (NEGATIVE) Urine RBC 0-5 (0-5) /HPF Urine WBC 0-5 (0-5/HPF) /HPF Ur Epithelial Cells Rare (NOT SEEN) /HPF Amorphous Sediment Rare (NOT SEEN) /HPF Influenza Type A RNA (NEGATIVE) Influenza Type B RNA (NEGATIVE) SARS-CoV-2 RNA ([place]) (NEGATIVE) 05/22/21 05/22/21 Range/Units 05:43 05:43 WBC (5.0-10.0) 10^3/uL RBC (4.6-6.2) 10^6/uL Hgb (14.0-18.0) g/dL Hct (40.0-54.0) % MCV (80-100) fL MCH (27.0-34.0) pg MCHC (33.0-35.0) g/dL Plt Count (150-450) 10^3/uL Neut % (Auto) (42.2-75.2) % Lymph % (Auto) (20.5-50.1) % [place] % (Auto) (2-8) % Eos % (Auto) (1.0-3.0) % Baso % (Auto) (0.0-1.0) % Sodium 145 (136-145) mmol/L Potassium 3.9 (3.5-5.1) mmol/L Chloride 107 (98-107) mmol/L Carbon Dioxide 24 (21-32) mmol/L Anion Gap 17.9 H (7-13) mEq/L BUN 13 (7-18) mg/dL Creatinine 1.02 (0.70-1.30) mg/dL Est Cr Clr Drug Dosing 92.44 mL/min Estimated GFR (MDRD) > 60 BUN/Creatinine Ratio (No establ ref range) Glucose 95 (70-99) mg/dL Lactic Acid (0.4-2.0) mmol/L Calcium 8.6 (8.5-10.1) mg/dL Total Bilirubin (0.2-1.0) mg/dL AST (15-37) U/L ALT (16-63) U/L Alkaline Phosphatase (46-116) U/L Troponin I High Sens 31 (<=76) pg/mL C-Reactive Protein (0.0-0.9) mg/dL B-Natriuretic Peptide (0-100) pg/ml Total Protein (6.4-8.2) g/dL Albumin (3.4-5.0) g/dL Globulin Albumin/Globulin Ratio Urine Color (YELLOW) Urine Appearance (CLEAR) Urine pH (5.0-9.0) Ur Specific [place] (1.005-1.030) Urine Protein (NEGATIVE) Urine Glucose (UA) (NEGATIVE) Urine Ketones (NEGATIVE) Urine Occult Blood (NEGATIVE) Urine Nitrite (NEGATIVE) Urine Bilirubin (NEGATIVE) Urine Urobilinogen (0.2-1.0) mg/dL Ur Leukocyte Esterase (NEGATIVE) Urine RBC (0-5) /HPF Urine WBC (0-5/HPF) /HPF Ur Epithelial Cells (NOT SEEN) /HPF Amorphous Sediment (NOT SEEN) /HPF Influenza Type A RNA (NEGATIVE) Influenza Type B RNA (NEGATIVE) SARS-CoV-2 RNA ([place]) (NEGATIVE) Med Orders - Current: Current Medications Acetaminophen (Acetaminophen 325 Mg Tab) 650 mg PO Q4H PRN PRN Reason: Pain (Mild 1-3)/fever Last Admin: 05/21/21 20:48 Dose: 650 mg Documented by: Clonidine HCl (Clonidine 0.1 Mg Tab) 0.1 mg PO Q6H PRN PRN Reason: sbp>160 Docusate Sodium (Docusate Sodium 100 Mg Cap) 100 mg PO BID PRN PRN Reason: Constipation Furosemide (Furosemide 40 Mg/4 Ml Vial) 40 mg IVPUSH BIDDIURETIC [facility] Last Admin: 05/22/21 08:00 Dose: 40 mg Documented by: Heparin Sodium (Porcine) (Heparin Sodium 5,000 Units/Ml Vial) 5,000 units SUBCUT Q8HR [facility] Last Admin: 05/22/21 06:05 Dose: Not Given Documented by: Lisinopril (Lisinopril 10 Mg Tab) 10 mg PO DAILY [facility] Last Admin: 05/22/21 08:03 Dose: 10 mg Documented by: Morphine Sulfate (Morphine 2 Mg/Ml Syringe) 2 mg IVPUSH Q2H PRN PRN Reason: Pain (severe 7-10) Ondansetron HCl (Ondansetron 4 Mg Tab.Dis) 4 mg PO Q4H PRN PRN Reason: nausea, able to take PO Oxycodone HCl (Oxycodone 5 Mg Tab) 5 mg PO Q4H PRN PRN Reason: Pain (moderate 4-6) Potassium Chloride (Potassium Chloride 10 Meq Tab.Er) 20 meq PO WITHBREAKFAST APURVA Last Admin: 05/22/21 08:03 Dose: 20 meq Documented by: Sodium Chloride (Sodium Chloride 0.9% 10 Ml Syringe) 10 ml FLUSH 0900,2100 [facility] Last Admin: 05/22/21 08:03 Dose: 10 ml Documented by: Sodium Chloride (Sodium Chloride 0.9% 10 Ml Syringe) 10 ml FLUSH ASDIRECTED PRN PRN Reason: Keep Vein Open Zolpidem Tartrate (Zolpidem 5 Mg Tab) 5 mg PO BEDTIME PRN PRN Reason: Sleep Last Admin: 05/21/21 20:48 Dose: 5 mg Documented by: Discontinued Medications Furosemide (Furosemide 40 Mg/4 Ml Vial) 40 mg IVPUSH ONETIME ONE Stop: 05/21/21 17:33 Last Admin: 05/21/21 17:51 Dose: 40 mg Documented by: Metoprolol Tartrate (Metoprolol Tartrate 5 Mg/5 Ml Sdv) 5 mg IVPUSH ONETIME ONE Stop: 05/21/21 17:59 Last Admin: 05/21/21 18:25 Dose: 5 mg Documented by: - Exam Quality Assessment: No: Supplemental Oxygen General: Alert, Oriented Neck: Supple Lungs: Clear to Auscultation, Normal Respiratory Effort Cardiovascular: Regular Rate, Regular Rhythm GI/Abdominal Exam: Normal Bowel Sounds, Soft, Non-Tender Extremities: Pedal Edema (2+) - Patient Data Lab Results Last 24 hrs: Laboratory Results - last 24 hr 05/21/21 05/21/21 05/21/21 Range/Units 16:25 17:39 17:39 WBC 12.4 H (5.0-10.0) 10^3/uL RBC 4.91 (4.6-6.2) 10^6/uL Hgb 14.0 (14.0-18.0) g/dL Hct 42.0 (40.0-54.0) % MCV 85.5 (80-100) fL MCH 28.5 (27.0-34.0) pg MCHC 33.3 (33.0-35.0) g/dL Plt Count 263 (150-450) 10^3/uL Neut % (Auto) 68.1 (42.2-75.2) % Lymph % (Auto) 24.0 (20.5-50.1) % [place] % (Auto) 5.8 (2-8) % Eos % (Auto) 1.7 (1.0-3.0) % Baso % (Auto) 0.4 (0.0-1.0) % Sodium 141 (136-145) mmol/L Potassium 4.0 (3.5-5.1) mmol/L Chloride 106 (98-107) mmol/L Carbon Dioxide 23 (21-32) mmol/L Anion Gap 16.0 H (7-13) mEq/L BUN 14 (7-18) mg/dL Creatinine 1.00 (0.70-1.30) mg/dL Est Cr Clr Drug Dosing 96.07 mL/min Estimated GFR (MDRD) > 60 BUN/Creatinine Ratio 14.0 (No establ ref range) Glucose 106 H (70-99) mg/dL Lactic Acid (0.4-2.0) mmol/L Calcium 8.8 (8.5-10.1) mg/dL Total Bilirubin 0.5 (0.2-1.0) mg/dL AST 30 (15-37) U/L ALT 55 (16-63) U/L Alkaline Phosphatase 78 (46-116) U/L Troponin I High Sens 27 (<=76) pg/mL C-Reactive Protein 2.3 H (0.0-0.9) mg/dL B-Natriuretic Peptide 501 H (0-100) pg/ml Total Protein 7.2 (6.4-8.2) g/dL Albumin 3.7 (3.4-5.0) g/dL Globulin 3.5 Albumin/Globulin Ratio 1.1 Urine Color (YELLOW) Urine Appearance (CLEAR) Urine pH (5.0-9.0) Ur Specific [place] (1.005-1.030) Urine Protein (NEGATIVE) Urine Glucose (UA) (NEGATIVE) Urine Ketones (NEGATIVE) Urine Occult Blood (NEGATIVE) Urine Nitrite (NEGATIVE) Urine Bilirubin (NEGATIVE) Urine Urobilinogen (0.2-1.0) mg/dL Ur Leukocyte Esterase (NEGATIVE) Urine RBC (0-5) /HPF Urine WBC (0-5/HPF) /HPF Ur Epithelial Cells (NOT SEEN) /HPF Amorphous Sediment (NOT SEEN) /HPF Influenza Type A RNA Negative (NEGATIVE) Influenza Type B RNA Negative (NEGATIVE) SARS-CoV-2 RNA ([place]) Negative (NEGATIVE) 05/21/21 05/21/21 05/22/21 Range/Units 17:39 18:25 05:43 WBC 12.4 H (5.0-10.0) 10^3/uL RBC 4.73 (4.6-6.2) 10^6/uL Hgb 13.3 L (14.0-18.0) g/dL Hct 41.1 (40.0-54.0) % MCV 86.9 (80-100) fL MCH 28.1 (27.0-34.0) pg MCHC 32.4 L (33.0-35.0) g/dL Plt Count 256 (150-450) 10^3/uL Neut % (Auto) 55.0 (42.2-75.2) % Lymph % (Auto) 34.2 (20.5-50.1) % [place] % (Auto) 7.4 (2-8) % Eos % (Auto) 3.1 H (1.0-3.0) % Baso % (Auto) 0.3 (0.0-1.0) % Sodium (136-145) mmol/L Potassium (3.5-5.1) mmol/L Chloride (98-107) mmol/L Carbon Dioxide (21-32) mmol/L Anion Gap (7-13) mEq/L BUN (7-18) mg/dL Creatinine (0.70-1.30) mg/dL Est Cr Clr Drug Dosing mL/min Estimated GFR (MDRD) BUN/Creatinine Ratio (No establ ref range) Glucose (70-99) mg/dL Lactic Acid 1.2 (0.4-2.0) mmol/L Calcium (8.5-10.1) mg/dL Total Bilirubin (0.2-1.0) mg/dL AST (15-37) U/L ALT (16-63) U/L Alkaline Phosphatase (46-116) U/L Troponin I High Sens (<=76) pg/mL C-Reactive Protein (0.0-0.9) mg/dL B-Natriuretic Peptide (0-100) pg/ml Total Protein (6.4-8.2) g/dL Albumin (3.4-5.0) g/dL Globulin Albumin/Globulin Ratio Urine Color Yellow (YELLOW) Urine Appearance Clear (CLEAR) Urine pH 6.0 (5.0-9.0) Ur Specific [place] >= 1.030 (1.005-1.030) Urine Protein Trace H (NEGATIVE) Urine Glucose (UA) Negative (NEGATIVE) Urine Ketones Negative (NEGATIVE) Urine Occult Blood Trace-intact H (NEGATIVE) Urine Nitrite Negative (NEGATIVE) Urine Bilirubin Negative (NEGATIVE) Urine Urobilinogen 0.2 (0.2-1.0) mg/dL Ur Leukocyte Esterase Negative (NEGATIVE) Urine RBC 0-5 (0-5) /HPF Urine WBC 0-5 (0-5/HPF) /HPF Ur Epithelial Cells Rare (NOT SEEN) /HPF Amorphous Sediment Rare (NOT SEEN) /HPF Influenza Type A RNA (NEGATIVE) Influenza Type B RNA (NEGATIVE) SARS-CoV-2 RNA ([place]) (NEGATIVE) 05/22/21 05/22/21 Range/Units 05:43 05:43 WBC (5.0-10.0) 10^3/uL RBC (4.6-6.2) 10^6/uL Hgb (14.0-18.0) g/dL Hct (40.0-54.0) % MCV (80-100) fL MCH (27.0-34.0) pg MCHC (33.0-35.0) g/dL Plt Count (150-450) 10^3/uL Neut % (Auto) (42.2-75.2) % Lymph % (Auto) (20.5-50.1) % [place] % (Auto) (2-8) % Eos % (Auto) (1.0-3.0) % Baso % (Auto) (0.0-1.0) % Sodium 145 (136-145) mmol/L Potassium 3.9 (3.5-5.1) mmol/L Chloride 107 (98-107) mmol/L Carbon Dioxide 24 (21-32) mmol/L Anion Gap 17.9 H (7-13) mEq/L BUN 13 (7-18) mg/dL Creatinine 1.02 (0.70-1.30) mg/dL Est Cr Clr Drug Dosing 92.44 mL/min Estimated GFR (MDRD) > 60 BUN/Creatinine Ratio (No establ ref range) Glucose 95 (70-99) mg/dL Lactic Acid (0.4-2.0) mmol/L Calcium 8.6 (8.5-10.1) mg/dL Total Bilirubin (0.2-1.0) mg/dL AST (15-37) U/L ALT (16-63) U/L Alkaline Phosphatase (46-116) U/L Troponin I High Sens 31 (<=76) pg/mL C-Reactive Protein (0.0-0.9) mg/dL B-Natriuretic Peptide (0-100) pg/ml Total Protein (6.4-8.2) g/dL Albumin (3.4-5.0) g/dL Globulin Albumin/Globulin Ratio Urine Color (YELLOW) Urine Appearance (CLEAR) Urine pH (5.0-9.0) Ur Specific [place] (1.005-1.030) Urine Protein (NEGATIVE) Urine Glucose (UA) (NEGATIVE) Urine Ketones (NEGATIVE) Urine Occult Blood (NEGATIVE) Urine Nitrite (NEGATIVE) Urine Bilirubin (NEGATIVE) Urine Urobilinogen (0.2-1.0) mg/dL Ur Leukocyte Esterase (NEGATIVE) Urine RBC (0-5) /HPF Urine WBC (0-5/HPF) /HPF Ur Epithelial Cells (NOT SEEN) /HPF Amorphous Sediment (NOT SEEN) /HPF Influenza Type A RNA (NEGATIVE) Influenza Type B RNA (NEGATIVE) SARS-CoV-2 RNA ([place]) (NEGATIVE) Result Diagrams: 05/22/21 05:43 05/22/21 05:43 Sepsis Event Note - Evaluation Sepsis Screening Result: No Definite Risk - Focused Exam Vital Signs: Vital Signs Temp Pulse Resp BP BP Pulse Ox 05/22/21 08:03 142/98 H 05/22/21 07:42 97.1 F 50 L 20 142/98 H 95 05/22/21 04:00 98.4 F 100 18 140/97 H 97 - Problem List & Annotations (1) CHF (congestive heart failure) SNOMED Code(s): 44349846 Code(s): I50.9 - HEART FAILURE, UNSPECIFIED Status: Acute Current Visit: Yes (2) Leukocytosis SNOMED Code(s): 033640060, 203873613 Code(s): D72.829 - ELEVATED WHITE BLOOD CELL COUNT, UNSPECIFIED Status: Acute Current Visit: Yes (3) Chest pain SNOMED Code(s): 44618706 Code(s): R07.9 - CHEST PAIN, UNSPECIFIED Status: Acute Current Visit: No Qualifiers: Chest pain type: unspecified Qualified Code(s): R07.9 - Chest pain, unspecified (4) Hypertension SNOMED Code(s): 92730960 Code(s): I10 - ESSENTIAL (PRIMARY) HYPERTENSION Status: Acute Current Visit: No Qualifiers: Hypertension type: unspecified Qualified Code(s): I10 - Essential (primary) hypertension - Problem List Review Problem List Initiated/Reviewed/Updated: Yes - My Orders Last 24 Hours: My Active Orders 05/21/21 17:39 CULTURE BLOOD [BC] Stat 05/21/21 20:20 Blood Culture x2 Reflex Set [OM.PC] Stat 05/21/21 20:24 Telemetry Monitoring [Cardiac Monitoring] [RC] 08,20 05/21/21 20:25 cloNIDine [Catapres] 0.1 mg PO Q6H PRN 05/21/21 20:26 Antiembolic Devices [RC] 08,20 Oxygen Therapy [RC] PRN Up With Assistance [RC] ASDIRECTED VTE/DVT Education [RC] 08,20 Vital Signs [RC] 00,04,08,12,16,20 Acetaminophen [TylenoL] 650 mg PO Q4H PRN Docusate Sodium [Colace] 100 mg PO BID PRN Morphine 2 mg IVPUSH Q2H PRN Ondansetron [Zofran ODT] 4 mg PO Q4H PRN Sodium Chloride 0.9% [Saline Flush] 10 ml FLUSH ASDIRECTED PRN Zolpidem [Ambien] 5 mg PO BEDTIME PRN oxyCODONE 5 mg PO Q4H PRN Antiembolic Hose [OM.PC] Per Unit Routine Peripheral IV Insertion Adult [OM.PC] Routine Saline Lock Insert [OM.PC] Routine Resuscitation Status Routine 05/21/21 20:27 Peripheral IV Care [RC] 00,04,08,12,16,20 05/21/21 20:30 lisinopriL [Prinivil] 10 mg PO DAILY 05/21/21 20:41 CULTURE BLOOD [BC] Stat 05/21/21 21:00 Sodium Chloride 0.9% [Saline Flush] 10 ml FLUSH 0900,2100 05/21/21 22:00 Heparin Sodium 5,000 units SUBCUT Q8HR 05/22/21 07:00 Echo Comp wo Cont [US] Routine 05/22/21 08:00 Furosemide [Lasix] 40 mg IVPUSH BIDDIURETIC Potassium Chloride [Klor-Con 10] 20 meq PO WITHBREAKFAST 05/23/21 05:11 B-TYPE NATRIURETIC PEPTIDE,BNP [CHEM] AM - Plan Plan:: 45 yo presented with increasing sob acute chf with cardiomegaly on cxr obtain echo to characterize chf started lasix, K supplement follow elytes and renal function htn started lasix started lisinopril consider to add BBlocker when diuresed some check lipid panel negative troponin continue telemetry for sob, chest pain dvt prophylaxis with sq heparin
[2021-05-22] MEDS: Acetaminophen 325 MG Tab PO PRN (16:00)
[2021-05-22] MEDS: Zolpidem 5 MG Tab PO PRN (21:36)
[2021-05-23] MEDS: Heparin Sodium 5,000 Units/ML Vial SUBCUT SCH (05:13)
[2021-05-23] MEDS: Potassium Chloride 10 MEQ Tab.ER PO SCH (08:32)
[2021-05-23] MEDS: Furosemide 40 MG/4 ML VIAL IVPUSH SCH (08:33)
[2021-05-23 09:40] LABS: ANION GAP 18.5 mEq/L (7-13); CHLORIDE,CL 106 mmol/L (98-107); SODIUM,NA 142 mmol/L (136-145)
[2021-05-23] MEDS ORDERED: Metoprolol Tartrate 25 MG Tab PO SCH (10:30)
--- NOTE | 2021-05-23 10:40 | PCM.DCSUM1 ---
Discharge Summary - Hospital Course Free Text/Narrative:: 45 yo presented with increasing sob has been diagnosed with chf and htn recently has ran out of his meds acute chf with cardiomegaly on cxr obtained echo to characterize chf - pending result at the time of discharge started lasix, K supplement follow elytes and renal function periodically htn started lasix started lisinopril, metoprolol lipid panel LDL>110 he did not think diet will work for him started lipitor Diagnosis: Stroke: No - Discharge Data Discharge Date: 05/23/21 Discharge Disposition: Home, Self-Care 01 Condition: Good - Referral to Home Health Primary Care Physician: PCP None - Discharge Diagnosis/Problem(s) (1) CHF (congestive heart failure) SNOMED Code(s): 57064610 ICD Code: I50.9 - HEART FAILURE, UNSPECIFIED Status: Acute Current Visit: Yes (2) Leukocytosis SNOMED Code(s): 823337830, 398897343 ICD Code: D72.829 - ELEVATED WHITE BLOOD CELL COUNT, UNSPECIFIED Status: Acute Current Visit: Yes (3) Chest pain SNOMED Code(s): 37867149 ICD Code: R07.9 - CHEST PAIN, UNSPECIFIED Status: Acute Current Visit: No Qualifiers: Chest pain type: unspecified Qualified Code(s): R07.9 - Chest pain, unspecified (4) Hypertension SNOMED Code(s): 36217174 ICD Code: I10 - ESSENTIAL (PRIMARY) HYPERTENSION Status: Acute Current Visit: No Qualifiers: Hypertension type: unspecified Qualified Code(s): I10 - Essential (primary) hypertension - Patient Instructions Diet: Heart Healthy Diet Activity: As Tolerated - Discharge Plan *PRESCRIPTION DRUG MONITORING PROGRAM REVIEWED*: Not Applicable *COPY OF PRESCRIPTION DRUG MONITORING REPORT IN PATIENT PETER: Not Applicable Prescriptions/Med Rec: RX: Potassium Chloride [Klor-Con 10] 20 meq PO WITHBREAKFAST #30 tab.er Furosemide [Lasix] 40 mg PO DAILY #30 tablet atorvaSTATin [Lipitor] 10 mg PO BEDTIME #30 tab RX: Metoprolol Tartrate 25 mg PO BID #60 tablet RX: lisinopriL [Prinivil] 10 mg PO DAILY #30 tablet Home Medications: Home Meds Furosemide [Lasix] 40 mg PO DAILY #30 tablet 05/23/21 [Rx] RX: Metoprolol Tartrate 25 mg PO BID #60 tablet 05/23/21 [Rx] RX: Potassium Chloride [Klor-Con 10] 20 meq PO WITHBREAKFAST #30 tab.er 05/23/21 [Rx] RX: lisinopriL [Prinivil] 10 mg PO DAILY #30 tablet 05/23/21 [Rx] atorvaSTATin [Lipitor] 10 mg PO BEDTIME #30 tab 05/23/21 [Rx] Oxygen Therapy Mode: Room Air Patient Handouts: Furosemide Oral Tablets, Lisinopril Oral Tablets, Peripheral Edema Referrals: Shweta Suarez, BRASS PICKLER [Nurse Practitioner] - - Discharge Summary/Plan Comment DC Time >30 min.: No Total # of Minutes for Discharge Time: 20 min - General Info Date of Service: 05/23/21 Subjective Update: still sob when laying back flat but would like to be discharged Functional Status: Reports: Tolerating Diet, Ambulating - Review of Systems General: Denies: Fever Pulmonary: Reports: Shortness of Breath (improved) Cardiovascular: Reports: Edema (improved). Denies: Chest Pain Gastrointestinal: Denies: Abdominal Pain Genitourinary: Denies: Dysuria Neurological: Denies: Confusion Psychiatric: Denies: Confusion - Patient Data Vitals - Most Recent: Last Vital Signs Temp 97.6 F 05/23/21 07:53 Pulse 69 05/23/21 07:53 Resp 18 05/23/21 07:53 BP 150/101 H 05/23/21 07:53 Pulse Ox 97 05/23/21 07:53 Weight - Most Recent: 259 lb 9.6 oz I&O - Last 24 hours: Intake & Output 05/22/21 05/23/21 05/23/21 22:59 06:59 14:59 Intake Total 850 Output Total 1450 1050 Balance -600 -1050 Lab Results - Last 24 hrs: Laboratory Results - last 24 hr 05/23/21 05/23/21 Range/Units 06:25 06:25 Sodium 142 (136-145) mmol/L Potassium 3.5 (3.5-5.1) mmol/L Chloride 106 (98-107) mmol/L Carbon Dioxide 21 (21-32) mmol/L Anion Gap 18.5 H (7-13) mEq/L BUN 15 (7-18) mg/dL Creatinine 1.20 (0.70-1.30) mg/dL Est Cr Clr Drug Dosing 78.58 mL/min Estimated GFR (MDRD) > 60 Glucose 146 H (70-99) mg/dL Calcium 8.4 L (8.5-10.1) mg/dL B-Natriuretic Peptide 352 H (0-100) pg/ml Triglycerides 72 (0-149) mg/dL Cholesterol 160 (0-199) mg/dL LDL Cholesterol, Calc 117 H (0-100) mg/dL HDL Cholesterol 29 L (40-59) mg/dL ODETTE Results - Last 24 hrs: Microbiology 05/21/21 20:41 Aerobic Blood Culture - Preliminary Blood - Arm, Left NO GROWTH AFTER 1 DAY Anaerobic Blood Culture - Preliminary NO GROWTH AFTER 1 DAY 05/21/21 17:39 Aerobic Blood Culture - Preliminary Blood - Venous - Iv Start NO GROWTH AFTER 1 DAY Anaerobic Blood Culture - Preliminary NO GROWTH AFTER 1 DAY Med Orders - Current: Current Medications Acetaminophen (Acetaminophen 325 Mg Tab) 650 mg PO Q4H PRN PRN Reason: Pain (Mild 1-3)/fever Last Admin: 05/22/21 16:00 Dose: 650 mg Documented by: Clonidine HCl (Clonidine 0.1 Mg Tab) 0.1 mg PO Q6H PRN PRN Reason: sbp>160 Docusate Sodium (Docusate Sodium 100 Mg Cap) 100 mg PO BID PRN PRN Reason: Constipation Furosemide (Furosemide 40 Mg/4 Ml Vial) 40 mg IVPUSH BIDDIURETIC [facility] Last Admin: 05/23/21 08:33 Dose: 40 mg Documented by: Heparin Sodium (Porcine) (Heparin Sodium 5,000 Units/Ml Vial) 5,000 units SUBCUT Q8HR [facility] Last Admin: 05/23/21 05:13 Dose: 5,000 units Documented by: Lisinopril (Lisinopril 10 Mg Tab) 10 mg PO DAILY [facility] Last Admin: 05/22/21 08:03 Dose: 10 mg Documented by: Metoprolol Tartrate (Metoprolol Tartrate 25 Mg Tab) 25 mg PO BID [facility] Morphine Sulfate (Morphine 2 Mg/Ml Syringe) 2 mg IVPUSH Q2H PRN PRN Reason: Pain (severe 7-10) Ondansetron HCl (Ondansetron 4 Mg Tab.Dis) 4 mg PO Q4H PRN PRN Reason: nausea, able to take PO Oxycodone HCl (Oxycodone 5 Mg Tab) 5 mg PO Q4H PRN PRN Reason: Pain (moderate 4-6) Potassium Chloride (Potassium Chloride 10 Meq Tab.Er) 20 meq PO WITHBREAKFAST [facility]UR[facility] Last Admin: 05/23/21 08:32 Dose: 20 meq Documented by: Sodium Chloride (Sodium Chloride 0.9% 10 Ml Syringe) 10 ml FLUSH 0900,2100 [facility] Last Admin: 05/22/21 21:37 Dose: 10 ml Documented by: Sodium Chloride (Sodium Chloride 0.9% 10 Ml Syringe) 10 ml FLUSH ASDIRECTED PRN PRN Reason: Keep Vein Open Zolpidem Tartrate (Zolpidem 5 Mg Tab) 5 mg PO BEDTIME PRN PRN Reason: Sleep Last Admin: 05/22/21 21:36 Dose: 5 mg Documented by: Discontinued Medications Furosemide (Furosemide 40 Mg/4 Ml Vial) 40 mg IVPUSH ONETIME ONE Stop: 05/21/21 17:33 Last Admin: 05/21/21 17:51 Dose: 40 mg Documented by: Metoprolol Tartrate (Metoprolol Tartrate 5 Mg/5 Ml Sdv) 5 mg IVPUSH ONETIME ONE Stop: 05/21/21 17:59 Last Admin: 05/21/21 18:25 Dose: 5 mg Documented by: - Exam Quality Assessment: Denies: Supplemental Oxygen General: Reports: Alert, Oriented Neck: Reports: Supple Lungs: Reports: Normal Respiratory Effort, Rhonchi Cardiovascular: Reports: Regular Rate, Regular Rhythm GI/Abdominal Exam: Normal Bowel Sounds, Soft, Non-Tender Extremities: Pedal Edema (trace to 1 + ) Skin: Reports: Warm, Dry Neurological: Reports: No New Focal Deficit Psy/Mental Status: Reports: Alert, Normal Affect
[2021-05-23] MEDS: Lisinopril 10 MG Tab PO SCH (10:51)
[2021-05-23] MEDS: Sodium Chloride 0.9% 10 ML Syringe FLUSH SCH (10:52)
== END 2021-05-23 11:15 | disposition home or self-care (01) | DRG 291 ==
LOC: DL.ED 16:03 → DL.MS 19:43
PROVIDERS: ADMIT Internal Medicine; ATTEND Internal Medicine
DX: I11.0 Hypertensive heart disease with heart failure (principal); I50.21 Acute systolic (congestive) heart failure; Z20.822 Contact with and (suspected) exposure to COVID-19; F17.210 Nicotine dependence, cigarettes, uncomplicated; D72.829 Elevated white blood cell count, unspecified
CPT/HCPCS: 0240U; 36415; 71045; 80048; 80053; 80061; 81001; 83605; 83880; 84484; 85025; 86140; 87040; 93005; 93306; 96374; 96375; 99222; 99232; 99239; 99285-25; A9270-GY; J1644; J1940; J3490